=== PATIENT | male | born 2000 | race Caucasian/White ===

== ENCOUNTER 2021-08-20 23:56 | Emergency (ER) | payer OTHER ==
[~2021-08-20] VITALS: Ht 177.8 cm; Wt 63.5 kg
[2021-08-21] MEDS ORDERED: AMOXICILLIN 50500 MG PO (00:05)
[2021-08-21 00:47] LABS: ABSOLUTE BASOPHILS 0.1 thou/uL (0.0-0.2); ABSOLUTE EOSINOPHILS 0.2 thou/uL (0.0-0.7); ABSOLUTE LYMPHOCYTES 4.3 thou/uL (0.8-5.3); ABSOLUTE MONOCYTES 0.4 thou/uL (0.0-1.2); ABSOLUTE NEUTROPHILS 5.3 thou/uL (1.6-8.1); BASOPHILS 1.2 %; EOSINOPHILS 1.5 %; HEMATOCRIT 44.7 % (42.0-52.0); HEMOGLOBIN 16.2 gm/dL (14.0-18.0); LYMPHOCYTES 41.5 %; MCH 32.8 pg (26.0-34.0); MCHC 36.3 g/dL (28.0-37.0); MCV 90.4 fL (80.0-100.0); MONOCYTES 4.1 %; MPV 8.4 fl. (7.2-11.1); NUCLEATED RBCS 0 /100WBC; PLATELET COUNT* 271 thou/uL (150-400); POLYS 51.7 %; RBC 4.94 mil/uL (4.50-6.00); RDW-CV 13.2 % (10.5-14.5); WBC 10.3 thou/uL (4.0-11.0)
[2021-08-21 00:51] LABS: CALCIUM 8.7 mg/dL (8.5-10.1); POTASSIUM 3.2 mmol/L (3.5-5.1)
[2021-08-21 00:55] LABS: ALBUMIN 4.2 g/dL (3.4-5.0); TOTAL BILIRUBIN 0.8 mg/dL (<0.1-1.0)
[2021-08-21 00:56] LABS: INFLUENZA A ANTIGEN Negative (Negative); INFLUENZA B ANTIGEN Negative (Negative)
[2021-08-21 01:26] LABS: URINE BILIRUBIN NEGATIVE (Negative); URINE BLOOD NEGATIVE (Negative); URINE CLARITY CLEAR; URINE COLOR YELLOW; URINE GLUCOSE-RANDOM NEGATIVE (Negative); URINE KETONES NEGATIVE (Negative); URINE LEUKOCYTES-REFLEX NEGATIVE (Negative); URINE NITRITE-REFLEX NEGATIVE (Negative); URINE PROTEIN NEGATIVE (Negative); URINE UROBILINOGEN 0.2 E.U./dl (0.2-1.0)
[2021-08-21] MEDS ORDERED: MEDROLDOSEPACK PO (02:14)
[2021-08-21 02:27] VITALS: BP 123/87
[2021-08-21] MEDS ORDERED: ACETAMINOPHEN-1 EAC2 PO (22:50)
[2021-08-21] MEDS ORDERED: AMOXICILLI400 MG/5 M PO (22:52)
== END 2021-08-21 02:28 | disposition home or self-care (01) ==
LOC: M.ERS 23:56
PROVIDERS: Personal Emergency Response Attendant
DX: U07.1 COVID-19 (principal); J02.9 Acute pharyngitis, unspecified; Z90.89 Acquired absence of other organs; Z79.2 Long term (current) use of antibiotics; Z88.8 Allergy status to other drugs, medicaments and biological substances

== ENCOUNTER 2021-08-21 19:12 | Emergency (ER) | payer OTHER ==
[~2021-08-21] VITALS: Ht 177.8 cm; Wt 63.5 kg
[~2021-08-21 19:12] MED LIST: AMOXICILLIN 50500 MG PO; MEDROLDOSEPACK PO
[2021-08-21 20:18] LABS: BE -1.8 mmol/L (-2 to +3); PCO2 27.2 mmHg (35.0-45.0); pH 7.484 (7.340-7.450)
[2021-08-21 20:21] LABS: PO2 40.7 mmHg (75.0-100.0)
[2021-08-21] MEDS ORDERED: ACETAMINOPHEN-1 EAC2 PO (22:50)
[2021-08-21] MEDS ORDERED: AMOXICILLI400 MG/5 M PO (22:52)
[2021-08-21 23:16] VITALS: BP 135/64
--- NOTE | 2021-08-22 14:37 | EKG ---
[place] [address] ELECTROCARDIOGRAM REPORT Name: DANNY SPANGLER Room: [facility]#: [id number] Admission: 08/21/21 Attend Phys: Discharge: 08/21/21 Date of : [birth year] Date of Service: 08/21/211925 Report #: [id number] THIS REPORT FOR: //name// [facility] ED Test Date: 2021-08-21 Test Time: 19:26:54 Pat Name: DANNY SPANGLER Department: Room: Gender: Facility Technician: [place] : 2000 Requested By: Samantha Lawson Order Number: [id number] MD: Gonzalez Gonzalez Measurements Intervals [place] Rate: 82 P: 79 IN: 158 QRS: 77 QRSD: 89 T: 68 QT: 391 QTc: 457 Interpretive Statements Sinus rhythm Minimal ST depression, inferior leads No previous ECG available for comparison Electronically Signed On 08-22-2021 14:37:13 21 DEALER by Gonzalez Gonzalez [email or web address] <ELECTRONICALLY SIGNED> By: Gonzalez Gonzalez MD, [facility] 08/22/21 1437 25 25 Gonzalez Gonzalez MD, FAC /EPI
== END 2021-08-21 23:17 | disposition home or self-care (01) ==
LOC: M.ERS 19:12
PROVIDERS: Personal Emergency Response Attendant
DX: E86.0 Dehydration (principal); J02.9 Acute pharyngitis, unspecified; F17.210 Nicotine dependence, cigarettes, uncomplicated; Z98.890 Other specified postprocedural states; Z90.49 Acquired absence of other specified parts of digestive tract; Z91.02 Food additives allergy status